=== PATIENT | female | born 1950 | race Caucasian/White ===

== ENCOUNTER 2019-09-20 12:40 | Emergency (ER) | payer MEDICARE ==
[2019-09-20] MEDS ORDERED: IBUPROFEN 600 MG TABLET ONE (13:09)
== END 2019-09-20 13:47 | disposition home or self-care (01) ==
LOC: EDH 12:40
DX: S82.831A Other fracture of upper and lower end of right fibula, initial encounter for closed fracture (principal); I10 Essential (primary) hypertension; Z88.3 Allergy status to other anti-infective agents; W18.40XA Slipping, tripping and stumbling without falling, unspecified, initial encounter; Y93.89 Activity, other specified; Y92.098 Other place in other non-institutional residence as the place of occurrence of the external cause; Y99.8 Other external cause status
CPT/HCPCS: 29515; 73610